=== PATIENT | male | born 1950 | race Caucasian/White ===

== ENCOUNTER 2021-11-09 15:32 | Emergency (ER) | payer MEDICARE, SELFPAY ==
[2021-11-09 15:41] VITALS: BP 112/56; PULSE 86; RESP 16; TEMP 37.1; O2SAT 100
[2021-11-09 15:58] VITALS: BP 112/56; PULSE 86; RESP 16; TEMP 37.1; O2SAT 100
[2021-11-09] MEDS: TETANUS/DIPHTHERIA TOXOIDS ADSORB 0.5 ML VIAL (*BKC) IM (16:03)
--- NOTE | 2021-11-09 16:33 | ED.WOUNDLAC ---
HPI - Wound/Laceration General Chief Complaint: Wound/Laceration Stated Complaint: Laceration to Ear Time Seen by Provider: 11/09/21 15:55 Source: patient and RN notes reviewed Mode of arrival: ambulatory Limitations: no limitations History of Present Illness HPI narrative: Patient presents today with a laceration to his left external ear. Around 1500, patient was at a hair salon when he became dizzy and fell, striking his left ear on the table. An ambulance was called and he was checked out. Patient declined to go to the hospital at that time. He is no longer dizzy. He is not up-to-date on his tetanus vaccine. Related Data Home Medications Medication Instructions Recorded Confirmed amiodarone 400 mg PO DAILY 11/09/21 11/09/21 enalapril maleate 2.5 mg PO DAILY 11/09/21 11/09/21 spironolactone 25 mg PO DAILY 11/09/21 11/09/21 tadalafil 20 mg PO DAILY PRN 11/09/21 11/09/21 tamsulosin 0.4 mg PO DAILY 11/09/21 11/09/21 Allergies Allergy/AdvReac Type Severity Reaction Status Date / Time No Known Allergies Allergy Verified 11/09/21 15:55 Review of Systems Review of Systems: CONSTITUTIONAL: Denies body aches, fever, chills, or sweats. EYES: Denies visual changes, redness, or discharge. ENT: Denies rhinorrhea, congestion, sore throat, or otalgia. CARDIOVASCULAR: Denies chest pain, palpitations, or edema. RESPIRATORY: Denies cough or dyspnea. GASTROINTESTINAL: Denies abdominal pain, nausea, vomiting, or diarrhea. GENITOURINARY: Denies dysuria or hematuria. SKIN: Denies rash, itching. + Left ear laceration MUSCULOSKELETAL: Denies back pain, joint pain, or myalgia. NEUROLOGIC: Denies headache, numbness, tingling, or weakness. PSYCH: Denies depression or anxiety. [facility] Past Medical History Medical History (Updated 11/09/21 @ 17:01 by Reyna Mcclain, HOLLIE, BC) Hypertension Surgical History Surgical History (Updated 11/09/21 @ 17:00 by Reyna Mcclain, [employer], BC) History of appendectomy History of cholecystectomy Comments At time of signature, I have reviewed and agree with nursing past medical, surgical, social and family history unless otherwise noted. Please see nursing chart for further information. There is no relevant family history pertinent to the presenting complaint Exam Narrative: GENERAL: Well-appearing, well-nourished, and in no acute distress. HEAD: Normocephalic, atraumatic. EYES: EOMI. No redness or drainage. Conjunctivae normal. ENT: Mucous membranes pink and moist. 2.5 cm Linear laceration of the helix of the left ear. NECK: Normal AROM. CHEST: No respiratory distress. EXTREMITIES: Normal range of motion. No edema. SKIN: Warm, dry, no rash. Capillary refill normal. Normal skin turgor. NEURO: No focal deficits. Alert and oriented x3. Gait steady. PSYCH: Normal affect. No signs of depression or anxiety. Course Course Level of Care: Express Care Visit Vital Signs Vital signs: Vital Signs Temperature 98.7 F 11/09/21 15:41 Pulse Rate 86 11/09/21 15:41 Respiratory Rate 16 11/09/21 15:41 Blood Pressure 112/56 L 11/09/21 15:41 Pulse Oximetry 100 11/09/21 15:41 Temperature 98.7 F 11/09/21 15:58 Pulse Rate 86 11/09/21 15:58 Respiratory Rate 16 11/09/21 15:58 Blood Pressure 112/56 L 11/09/21 15:58 Pulse Oximetry 100 11/09/21 15:58 Reviewed. Pt has been instructed to follow up with his PCP regarding his elevated blood pressure today. Procedures Laceration Laceration 1: Date: 11/09/21 Time: 16:33 Site: other (Left external ear) Size (cm): 2.5 Description: linear Depth: simple, single layer Local Anesthetic: lidocaine 1% Amount of anesthesia used (mL): 2 Pre-repair: wound explored and irrigated ====== Skin Level ====== Skin layer closed with: nylon Size (cm): 6-0 Number of sutures: 5 Technique: simple, interrupted ====== Subcutaneous Layer ======
== END 2021-11-09 16:41 | disposition home or self-care (01) ==
PROVIDERS: Emergency Provider Nurse Practitioner; PCP Internal Medicine
DX: S01.312A Laceration without foreign body of left ear, initial encounter (principal); W19.XXXA Unspecified fall, initial encounter; Z23 Encounter for immunization; I10 Essential (primary) hypertension
CPT/HCPCS: 12011; 90471; 90714; 99212; G0463

== ENCOUNTER 2021-11-21 16:40 | Emergency (ER) | payer MEDICARE, SELFPAY ==
[2021-11-21 16:44] VITALS: BP 130/72; PULSE 82; RESP 16; TEMP 37.3; O2SAT 98
--- NOTE | 2021-11-21 16:51 | ED.WOUNDLAC ---
HPI - Wound/Laceration General Chief Complaint: Wound/Laceration Stated Complaint: Suture Removal Time Seen by Provider: 11/21/21 16:52 Source: patient and RN notes reviewed Mode of arrival: ambulatory Limitations: no limitations History of Present Illness HPI narrative: 71-year-old male presents with concern for suture removal. Reports on November 09 he had a laceration of the left ear repaired. He denies any redness, swelling, drainage from the wound. Denies any complications or concerns. Related Data Home Medications Medication Instructions Recorded Confirmed amiodarone 400 mg PO DAILY 11/09/21 11/21/21 enalapril maleate 2.5 mg PO DAILY 11/09/21 11/21/21 spironolactone 25 mg PO DAILY 11/09/21 11/21/21 tadalafil 20 mg PO DAILY PRN 11/09/21 11/21/21 tamsulosin 0.4 mg PO DAILY 11/09/21 11/21/21 Allergies Allergy/AdvReac Type Severity Reaction Status Date / Time No Known Allergies Allergy Verified 11/21/21 16:49 Review of Systems Review of Systems: CONSTITUTIONAL: Denies malaise, chills, sweats, or fever. SKIN: Reports healing laceration to the left ear MUSCULOSKELETAL: Denies muscle skeletal pain NEUROLOGIC: Denies numbness, weakness All systems reviewed & are unremarkable except as noted in HPI and below PMFSH Past Medical History Medical History (Updated 11/21/21 @ 16:56 by Naomy Hollins NP) Hypertension Surgical History Surgical History (Updated 11/09/21 @ 17:00 by Reyna Mcclain, [facility], ) History of appendectomy History of cholecystectomy Comments At time of signature, agree with nursing past medical, surgical, social and family history. There is no relevant family history pertinent to the presenting complaint Exam Narrative: GENERAL: Well-appearing, well-nourished, and in no acute distress. HEAD: Normocephalic, atraumatic. EYES: PERRLA ENT: Mucous membranes moist. NECK: Supple. No lymphadenopathy CHEST: Clear to auscultation. No respiratory distress. HEART: Regular rate and rhythm. SKIN: Warm, dry. Laceration to left ear healed with five intact sutures. NEURO: Alert and oriented x3. PSYCH: Normal mood and affect Course Course Emergency Course: Patient is aware of diagnosis, understands and agrees to treatment plan. Anticipatory guidance given. Patient agrees to follow-up as directed and is aware of reasons to seek care at the emergency department. Portions of this record may have been created with voice recognition software Level of Care: Express Care Visit Vital Signs Vital signs: Reviewed. MDM - Wound/Laceration MDM Narrative Medical decision making narrative: Verbal consent was obtained. Wound well approximated, no erythema, induration, or discharge noted. 5 sutures completely removed in a sterile fashion. Patient tolerated procedure well, no complications. Patient advised to look for and return for any signs of infection such as redness, swelling, discharge, or worsening pain. Differential Diagnosis Differential diagnosis: Likely laceration, abrasion and avulsion of skin Critical Care Time Critical Care Time Critical Care Time: No Discharge Plan Discharge Clinical Impression: Visit for suture removal Patient Disposition: Home, Self-Care Condition: Stable Instructions: Stitches Removal (ED) Additional Instructions: AFTER the stitches are removed: Clean your wound as directed. Carefully wash your wound with soap and water. Pat the area dry with a clean towel. Protect your wound. Your wound can swell, bleed, or split open if it is stretched or bumped. You may need to wear a bandage that supports your wound until it is completely healed. How to minimize a scar: After sutures are removed, keep your scar out of the sun. Use sunblock if your wound is exposed to the sun. You may use OTC silicone pad and/or scar massage with ointment (for 10-15 min a day) after one month. Talk to your doctor if you think you are developing a keloid. Prescriptions: No A
== END 2021-11-21 17:08 | disposition home or self-care (01) ==
PROVIDERS: Emergency Provider Nurse Practitioner; PCP Internal Medicine
DX: S01.312D Laceration without foreign body of left ear, subsequent encounter (principal); X58.XXXD Exposure to other specified factors, subsequent encounter; I10 Essential (primary) hypertension
CPT/HCPCS: 99211; G0463